=== PATIENT | male | born 1930 | race Caucasian/White ===

== ENCOUNTER → 2017-11-27 | Outpatient (CLI) | payer MEDICARE ==
[~2017-11-27] MED LIST: HYDROCODONE BIT1 T11 PO; LISINOPRIL10 MG PO; PREDNISONE20 MG PO
== END | disposition home or self-care (01) ==
LOC: US 10:00
DX: N18.3 Chronic kidney disease, stage 3 (moderate) (principal); N28.1 Cyst of kidney, acquired

== ENCOUNTER 2018-10-21 11:53 | Emergency (ER) | payer MEDICARE ==
[~2018-10-21] VITALS: Ht 170.1 cm; Wt 72.6 kg
[2018-10-21] MEDS ORDERED: LISINOPRIL10 M1 PO (12:02)
[2018-10-21] MEDS ORDERED: LEVOTHYROXINE50 MCG PO (12:02)
[2018-10-21] MEDS ORDERED: TRAMADOL HCL50 MG PO (12:03)
== END 2018-10-21 13:00 | disposition home or self-care (01) ==
LOC: ED 11:53
DX: G89.29 Other chronic pain (principal); M25.572 Pain in left ankle and joints of left foot; M25.571 Pain in right ankle and joints of right foot; M25.562 Pain in left knee; M25.561 Pain in right knee; M79.641 Pain in right hand; M79.642 Pain in left hand; Z91.048 Other nonmedicinal substance allergy status; Z79.899 Other long term (current) drug therapy

== ENCOUNTER 2019-09-29 11:39 | Emergency (ER) | payer MEDICARE ==
[~2019-09-29] VITALS: Ht 170.1 cm; Wt 68.0 kg
[~2019-09-29 11:39] MED LIST changes: +LEVOTHYROXINE50 MCG PO; +LISINOPRIL10 M1 PO; +TRAMADOL HCL50 MG PO
== END 2019-09-29 15:27 | disposition left against medical advice (07) ==
LOC: ED 11:39
DX: S09.90XA Unspecified injury of head, initial encounter (principal); M25.512 Pain in left shoulder; I10 Essential (primary) hypertension; Z91.048 Other nonmedicinal substance allergy status; Z79.899 Other long term (current) drug therapy; W01.198A Fall on same level from slipping, tripping and stumbling with subsequent striking against other object, initial encounter; Y93.89 Activity, other specified; Y92.098 Other place in other non-institutional residence as the place of occurrence of the external cause; Y99.8 Other external cause status

== ENCOUNTER 2019-12-08 00:30 | Inpatient (IN) | payer OTHER, MEDICARE ==
[2019-12-08] VITALS (7 sets, daily range): BP systolic 113–158; BP diastolic 55–94
[~2019-12-08] VITALS: Ht 170.2 cm; Wt 59.7 kg
[2019-12-08 01:25] LABS: HEMATOCRIT 36.7 % (42.0-52.0); HEMOGLOBIN 11.6 g/dl (14.0-18.0); MEAN CELL VOLUME 97.1 fl (80.0-94.0); MEAN CORPUSCULAR HGB 30.7 pg (27.0-31.0); MEAN CORPUSCULAR HGB CONC 31.6 g/dl (33.0-37.0); MEAN PLATELET VOLUME 10.2 fl (9.6-12.3); PLATELET COUNT AUTOMATED 211 10*3/uL (130-400); RED BLOOD COUNT 3.78 10*6/uL (4.50-5.90); RED CELL DISTRI WIDTH 13.9 % (0-14.5); WHITE BLOOD COUNT 11.9 10*3/uL (4.8-10.8)
[2019-12-08 01:40] LABS: ALBUMIN 4.1 gm/dl (3.1-4.5); CREATININE 1.77 mg/dL (0.70-1.30); POTASSIUM 4.7 mmol/L (3.5-5.1); TOTAL PROTEIN 7.8 gm/dL (6.4-8.2)
[2019-12-08 01:42] LABS: BASOPHILS 1 % (0-1); PLATELET SUFFICIENCY NORMAL (NORMAL); TOTAL CELLS COUNTED 100 #CELLS
[2019-12-08] MEDS ORDERED: KLOR-CON 1010 ME1 PO (04:27)
[2019-12-08] MEDS ORDERED: LASIX20 MG PO (04:27)
[2019-12-08] MEDS ORDERED: PRAVACHOL20 MG PO (04:28)
[2019-12-08] MEDS ORDERED: OMEPRAZOLE40 MG PO (04:28)
[2019-12-08 11:52] LABS: COLOR YELLOW (YELLOW)
[2019-12-08 11:53] LABS: BACTERIA 2+; BILIRUBIN NEGATIVE (NEGATIVE); BLOOD NEGATIVE (NEGATIVE); CLARITY SL CLOUDY (CLEAR); EPITHELIAL CELLS 0-2; GLUCOSE NEGATIVE (NEGATIVE); HYALINE CAST 40-45; KETONE NEGATIVE (NEGATIVE); LEUKO ESTERASE NEGATIVE (NEGATIVE); MUCOUS 2+; NITRITE NEGATIVE (NEGATIVE); UROBILINOGEN 0.2 E.U./dl (0.2-1.0)
[2019-12-09 07:22] LABS: BASO # 0.1 10*3/uL (0.0-0.1); BASO % 0.6 % (0.0-1.0); EOS # 1.1 10*3/uL (0.0-0.4); EOS % 12.4 % (1.0-4.0); HEMATOCRIT 32.2 % (42.0-52.0); LYMPH # 0.7 10*3/uL (1.3-4.4); MEAN CELL VOLUME 99.7 fl (80.0-94.0); MEAN CORPUSCULAR HGB CONC 31.1 g/dl (33.0-37.0); MEAN PLATELET VOLUME 10.7 fl (9.6-12.3); MONO # 0.7 10*3/uL (0.1-1.0); MONO % 7.8 % (3.0-9.0); NEUT # 6.3 10*3/uL (2.3-7.9); PLATELET COUNT AUTOMATED 185 10*3/uL (130-400); RED BLOOD COUNT 3.23 10*6/uL (4.50-5.90); RED CELL DISTRI WIDTH 14.5 % (0-14.5); WHITE BLOOD COUNT 8.9 10*3/uL (4.8-10.8)
[2019-12-09 07:28] LABS: ALBUMIN 3.3 gm/dl (3.1-4.5); CREATININE 1.62 mg/dL (0.70-1.30); FREE T4 1.07 ng/dl (0.76-1.46); PHOSPHOROUS 2.9 mg/dL (2.5-4.9); POTASSIUM 4.7 mmol/L (3.5-5.1); TOTAL PROTEIN 6.6 gm/dL (6.4-8.2)
[2019-12-09 08:00] VITALS: BP 106/55
[2019-12-09 08:28] LABS: VITAMIN D, 25-HYDROXY 47.3 ng/mL (30-100)
[2019-12-09 12:00] VITALS: BP 152/71
[2019-12-09 16:00] VITALS: BP 106/66
[2019-12-09 20:00] VITALS: BP 111/48; BP 120/70
[2019-12-10] VITALS: BP 112/55
[2019-12-10 06:50] LABS: CREATININE 1.59 mg/dL (0.70-1.30); POTASSIUM 4.5 mmol/L (3.5-5.1)
[2019-12-10 08:00] VITALS: BP 141/85
[2019-12-10 12:00] VITALS: BP 150/85
[2019-12-10 16:00] VITALS: BP 120/57
[2019-12-10 20:00] VITALS: BP 125/62
[2019-12-11] VITALS: BP 138/76
[2019-12-11 06:45] LABS: BASO % 0.2 % (0.0-1.0); EOS # 0.3 10*3/uL (0.0-0.4); EOS % 2.3 % (1.0-4.0); HEMATOCRIT 28.2 % (42.0-52.0); HEMOGLOBIN 9.1 g/dl (14.0-18.0); LYMPH # 0.7 10*3/uL (1.3-4.4); LYMPH % 6.1 % (27.0-41.0); MEAN CELL VOLUME 97.6 fl (80.0-94.0); MEAN CORPUSCULAR HGB 31.5 pg (27.0-31.0); MEAN CORPUSCULAR HGB CONC 32.3 g/dl (33.0-37.0); MONO # 1.2 10*3/uL (0.1-1.0); MONO % 10.1 % (3.0-9.0); NEUT # 9.6 10*3/uL (2.3-7.9); NEUT % 80.6 % (47.0-73.0); PLATELET COUNT AUTOMATED 154 10*3/uL (130-400); RED BLOOD COUNT 2.89 10*6/uL (4.50-5.90); RED CELL DISTRI WIDTH 13.9 % (0-14.5); WHITE BLOOD COUNT 11.9 10*3/uL (4.8-10.8)
[2019-12-11 06:58] LABS: CREATININE 1.55 mg/dL (0.70-1.30); POTASSIUM 3.7 mmol/L (3.5-5.1)
[2019-12-11 08:00] VITALS: BP 99/73
== END 2019-12-11 12:13 | disposition other institution (70) | DRG 388 ==
LOC: ED 00:30 → 5E 03:16 → EDHOLD 03:16 → 5E 03:42
PROVIDERS: Emergency Medicine; Internal Medicine; ADMIT Emergency Medicine
PROC: 0D9670Z Drainage of Stomach with Drainage Device, Via Natural or Artificial Opening (ICD-10-PCS; principal; 2019-12-08)
DX: K56.600 Partial intestinal obstruction, unspecified as to cause (principal); N17.0 Acute kidney failure with tubular necrosis; J96.00 Acute respiratory failure, unspecified whether with hypoxia or hypercapnia; R73.9 Hyperglycemia, unspecified; R82.71 Bacteriuria; G89.29 Other chronic pain; F32.9 Major depressive disorder, single episode, unspecified; K57.90 Diverticulosis of intestine, part unspecified, without perforation or abscess without bleeding; I10 Essential (primary) hypertension; E78.5 Hyperlipidemia, unspecified; E03.9 Hypothyroidism, unspecified; D53.9 Nutritional anemia, unspecified; R80.9 Proteinuria, unspecified; Z91.048 Other nonmedicinal substance allergy status; Z79.899 Other long term (current) drug therapy; Z87.891 Personal history of nicotine dependence; Z80.9 Family history of malignant neoplasm, unspecified